=== PATIENT | male | born 1950 | race Caucasian/White ===

== ENCOUNTER 2018-06-06 10:01 | Inpatient (IN) | payer MEDICARE, OTHER ==
[2018-06-06 10:31] LABS: ABNORMAL IP MESSAGE 1; ADD MAN DIFF? NO; BASOPHILS % 0.3 % (0.0-2.0); EOSINOPHILS # 0.1 10^3/ul (0.0-0.5); EOSINOPHILS % 1.4 % (0.0-7.0); HEMATOCRIT 38.2 % (42.0-52.0); HEMOGLOBIN 10.9 g/dl (14.0-18.0); LYMPHOCYTES # 0.7 10^3/ul (0.8-2.9); LYMPHOCYTES % 11.9 % (15.0-51.0); MEAN CORPUSCULAR HEMOGLOBIN 21.3 pg (29.0-33.0); MEAN CORPUSCULAR HGB CONC 28.5 g/dl (32.0-37.0); MEAN CORPUSCULAR VOLUME 74.8 fl (82.0-101.0); MEAN PLATELET VOLUME 10.9 fl (7.4-10.4); MONOCYTE # 0.6 10^3/ul (0.3-0.9); MONOCYTES % 10.4 % (0.0-11.0); NEUTROPHIL # 4.5 10^3/ul (1.6-7.5); NEUTROPHILS % 75.7 % (39.0-77.0); PLATELET COUNT 227 10^3/UL (140-415); POSITIVE DIFF @See below; RED BLOOD COUNT 5.11 10^6/ul (4.70-6.10); RED CELL DISTRIBUTION WIDTH 17.6 % (11.5-14.5)
[2018-06-06 10:31] LABS: WHITE BLOOD COUNT 5.9 10^3/ul (4.8-10.8)
[2018-06-06] MEDS: NITROGLYCERIN (SL) 0.4 MG TAB SL (10:33)
[2018-06-06] MEDS: ONDANSETRON 4 MG INJ IV (10:33)
[2018-06-06] MEDS: NITROGLYCERIN 2% 1 GM OINT PKT TD (10:33)
[2018-06-06] MEDS: ASPIRIN 325 MG TAB PO (10:33)
[2018-06-06] MEDS: morphine 4 MG/ML VIAL IV (10:33)
[2018-06-06 10:54] LABS: ALANINE AMINOTRANSFERASE 10 IU/L (13-69); ALBUMIN 4.5 g/dl (3.3-4.9); ALBUMIN/GLOBULIN RATIO 1.28; ALKALINE PHOSPHATASE 98 IU/L (42-121); ANION GAP 13 (5-13); ASPARTATE AMINO TRANSFERASE 18 IU/L (15-46); BLOOD UREA NITROGEN 61 mg/dl (7-20); CALCIUM 8.8 mg/dl (8.4-10.2); CARBON DIOXIDE 16 mmol/L (21-31); CHLORIDE 114 mmol/L (97-110); CREATININE 3.61 mg/dl (0.61-1.24); Estimated GFR 17 mL/min (>60); GLUCOSE 155 mg/dl (70-220); SODIUM 143 mmol/L (135-144)
[2018-06-06 11:06] LABS: B-TYPE NATRIURETIC PEPTIDE 3630 PG/ML (0-125); TROPONIN-I < 0.012 ng/ml (0.000-0.120)
[2018-06-06] MEDS ORDERED: ACETAMINOPHEN 325 MG TAB PO (13:30)
[2018-06-06] MEDS ORDERED: ONDANSETRON 4 MG INJ IV (13:30)
[2018-06-06 17:47] LABS: CREATINE KINASE 196 IU/L (23-200)
[2018-06-06 18:00] LABS: CK INDEX 8.5
[2018-06-06 20:21] LABS: WHITE BLOOD COUNT 4.7 10^3/ul (4.8-10.8)
[2018-06-06 20:21] LABS: ABNORMAL IP MESSAGE 1; HEMATOCRIT 32.2 % (42.0-52.0); HEMOGLOBIN 9.5 g/dl (14.0-18.0); MEAN CORPUSCULAR HEMOGLOBIN 21.5 pg (29.0-33.0); MEAN CORPUSCULAR HGB CONC 29.5 g/dl (32.0-37.0); MEAN CORPUSCULAR VOLUME 72.9 fl (82.0-101.0); MEAN PLATELET VOLUME 11.2 fl (7.4-10.4); PLATELET COUNT 205 10^3/UL (140-415); POSITIVE DIFF @See below; RED BLOOD COUNT 4.42 10^6/ul (4.70-6.10); RED CELL DISTRIBUTION WIDTH 17.8 % (11.5-14.5)
[2018-06-06 20:29] LABS: ADD MAN DIFF? YES
[2018-06-06 20:41] LABS: INR 1.01; PROTIME 13.4 Sec (11.9-14.9)
[2018-06-06] MEDS: TAMSULOSIN (SR) 0.4 MG CAP PO (20:48)
[2018-06-06] MEDS: EZETIMIBE 10 MG TAB PO (20:49)
[2018-06-06] MEDS: SOD CHLORIDE 0.9% 1,000 ML IV (20:52)
[2018-06-06 21:04] LABS: PARTIAL THROMBOPLASTIN TIME 33.6 Sec (23.0-35.0)
[2018-06-06] MEDS: HEPARIN 1000 UNITS/ML 10 ML INJ IV (21:04)
[2018-06-06 21:19] LABS: ANISOCYTOSIS 2+ (0-0); BAND NEUTROPHILS % (M) 2 % (0-4); BASOPHILS % (M) 2 % (0-2); EOSINOPHILS % (M) 3 % (0-7); GIANT THROMBO% (M) 1 % (0-0); LYMPHOCYTES #M 0.7 10^3/ul (0.8-2.9); LYMPHOCYTES % (M) 15 % (15-51); METAMYELOCYTES #M 0.1 10^3/ul (0.0-0.0); METAMYELOCYTES %M 3 % (0-0); MICROCYTOSIS 1+ (0-0); MONOCYTE #M 0.5 10^3/ul (0.3-0.9); MONOCYTES % (M) 11 % (0-11); PLATELET ESTIMATE NORMAL; POIKILOCYTOSIS 3+ (0-0); POLYCHROMASIA 3+ (0-0); SEGMENTED NEUTROPHILS (M) % 64 % (39-77); SMUDGE%M 1 % (0-0)
[2018-06-06] MEDS: HEPARIN 25000 UNITS/250 ML 250 ML IV (21:43)
[2018-06-06] MEDS: CLONIDINE 0.2 MG/24 HR PATCH TRANSDERM (21:44)
[2018-06-07 00:52] LABS: CREATINE KINASE 203 IU/L (23-200)
[2018-06-07 01:06] LABS: CK INDEX 8.9
[2018-06-07 04:33] LABS: CHOL/HDL RATIO 3.6 RATIO; HDL CHOLESTEROL 32 mg/dl (30-78); LDL CHOLESTEROL,CALCULATED 75 mg/dl; TRIGLYCERIDES 53 mg/dl (0-149)
[2018-06-07 04:33] LABS: CHOLESTEROL 118 mg/dl (100-200)
[2018-06-07 04:35] LABS: PARTIAL THROMBOPLASTIN TIME 48.3 Sec (23.0-35.0)
[2018-06-07] MEDS: HEPARIN 25000 UNITS/250 ML 250 ML IV ×3 (04:42→21:14)
[2018-06-07] MEDS: FINASTERIDE 5 MG TAB PO (09:25)
[2018-06-07] MEDS: SOD CHLORIDE 0.9% 1,000 ML IV (09:28)
[2018-06-07] MEDS: ISOSORBIDE DINITRATE 10 MG TAB PO ×3 (09:30→21:00)
[2018-06-07 11:17] LABS: PARTIAL THROMBOPLASTIN TIME 46.5 Sec (23.0-35.0)
[2018-06-07] MEDS ORDERED: ASPIRIN 325 MG TAB (12:16)
[2018-06-07] MEDS ORDERED: CLOPIDOGREL 75 MG TAB (12:16)
[2018-06-07] MEDS ORDERED: ASPIRIN 81 MG TAB (12:26)
[2018-06-07] MEDS: CLOPIDOGREL 75 MG TAB PO (12:50)
[2018-06-07] MEDS: NIFEdipine (XL) 90 MG TAB PO (12:50)
[2018-06-07] MEDS: ASPIRIN 81 MG TAB PO (12:50)
[2018-06-07] MEDS: HEPARIN 1000 UNITS/ML 10 ML INJ IV (13:02)
[2018-06-07 20:06] LABS: CREATINE KINASE 98 IU/L (23-200)
[2018-06-07 20:11] LABS: PARTIAL THROMBOPLASTIN TIME 83.9 Sec (23.0-35.0)
[2018-06-07 20:17] LABS: CK INDEX 6.6
[2018-06-07 20:23] LABS: CK-MB 6.43 ng/ml (0.0-2.4)
[2018-06-07] MEDS: TAMSULOSIN (SR) 0.4 MG CAP PO (20:59)
[2018-06-07] MEDS: EZETIMIBE 10 MG TAB PO (20:59)
[2018-06-07] MEDS: ATORVASTATIN 80 MG TAB PO (21:01)
[2018-06-08] MEDS: SOD CHLORIDE 0.9% 1,000 ML IV
[2018-06-08 01:08] LABS: CREATINE KINASE 79 IU/L (23-200)
[2018-06-08 01:20] LABS: CK INDEX 6.1
[2018-06-08 01:31] LABS: CK-MB 4.85 ng/ml (0.0-2.4)
[2018-06-08 06:22] LABS: CREATINE KINASE 66 IU/L (23-200)
[2018-06-08 06:27] LABS: CK INDEX 5.5
[2018-06-08 06:28] LABS: CK-MB 3.66 ng/ml (0.0-2.4)
[2018-06-08] MEDS: HEPARIN 25000 UNITS/250 ML 250 ML IV (06:49)
[2018-06-08] MEDS: FINASTERIDE 5 MG TAB PO (08:27)
[2018-06-08] MEDS: CLOPIDOGREL 75 MG TAB PO (08:27)
[2018-06-08] MEDS: ASPIRIN 81 MG TAB PO (08:27)
[2018-06-08] MEDS: NIFEdipine (XL) 90 MG TAB PO (08:27)
[2018-06-08] MEDS: ISOSORBIDE DINITRATE 10 MG TAB PO ×3 (08:27→20:36)
[2018-06-08 10:14] LABS: PARTIAL THROMBOPLASTIN TIME 67.3 Sec (23.0-35.0)
[2018-06-08 10:40] LABS: ALANINE AMINOTRANSFERASE 52 IU/L (13-69); ALBUMIN 3.3 g/dl (3.3-4.9); ALBUMIN/GLOBULIN RATIO 1.13; ALKALINE PHOSPHATASE 85 IU/L (42-121); ANION GAP 13 (5-13); ASPARTATE AMINO TRANSFERASE 68 IU/L (15-46); BLOOD UREA NITROGEN 63 mg/dl (7-20); CALCIUM 7.8 mg/dl (8.4-10.2); CARBON DIOXIDE 12 mmol/L (21-31); CHLORIDE 117 mmol/L (97-110); CREATININE 3.54 mg/dl (0.61-1.24); Estimated GFR 17 mL/min (>60); GLUCOSE 94 mg/dl (70-220); MAGNESIUM 1.7 mg/dl (1.7-2.5); POTASSIUM 5.2 mmol/L (3.5-5.1); SODIUM 142 mmol/L (135-144); TOTAL PROTEIN 6.2 g/dl (6.1-8.1)
[2018-06-08 10:48] LABS: B-TYPE NATRIURETIC PEPTIDE 6480 PG/ML (0-125)
[2018-06-08] MEDS: FUROSEMIDE 40 MG INJ IV (12:04)
[2018-06-08 12:33] LABS: POTASSIUM 5.4 mmol/L (3.5-5.1)
[2018-06-08] MEDS: HEPARIN 5,000 UNIT/1 ML VIAL SC ×2 (13:14→21:20)
[2018-06-08] MEDS: SODIUM POLYSTYRENE 15 GM KIT (POWDER + SORBITOL) PO (13:20)
[2018-06-08] MEDS: ATORVASTATIN 80 MG TAB PO (20:35)
[2018-06-08] MEDS: EZETIMIBE 10 MG TAB PO (20:36)
[2018-06-08] MEDS: TAMSULOSIN (SR) 0.4 MG CAP PO (20:37)
[2018-06-09] MEDS: HEPARIN 5,000 UNIT/1 ML VIAL SC (05:16)
[2018-06-09 06:34] LABS: PARTIAL THROMBOPLASTIN TIME 36.8 Sec (23.0-35.0)
[2018-06-09 06:36] LABS: ANION GAP 16 (5-13); BLOOD UREA NITROGEN 57 mg/dl (7-20); CALCIUM 8.1 mg/dl (8.4-10.2); CARBON DIOXIDE 16 mmol/L (21-31); CHLORIDE 116 mmol/L (97-110); CREATININE 3.69 mg/dl (0.61-1.24); Estimated GFR 17 mL/min (>60); GLUCOSE 95 mg/dl (70-220); POTASSIUM 4.7 mmol/L (3.5-5.1); SODIUM 148 mmol/L (135-144)
[2018-06-09 06:46] LABS: CREATINE KINASE 48 IU/L (23-200)
[2018-06-09 06:47] LABS: B-TYPE NATRIURETIC PEPTIDE 6030 PG/ML (0-125)
[2018-06-09 06:49] LABS: CK INDEX 3.1; CK-MB 1.47 ng/ml (0.0-2.4)
[2018-06-09] MEDS: CLOPIDOGREL 75 MG TAB PO (08:47)
[2018-06-09] MEDS: FINASTERIDE 5 MG TAB PO (08:48)
[2018-06-09] MEDS: ASPIRIN 81 MG TAB PO (08:48)
[2018-06-09] MEDS: NIFEdipine (XL) 90 MG TAB PO (08:48)
[2018-06-09] MEDS: ISOSORBIDE DINITRATE 10 MG TAB PO (08:48)
[2018-06-09] MEDS ORDERED: CITRIC ACID/NA CITRATE 30 ML CUP PO ×2 (12:00→21:00)
== END 2018-06-09 13:38 | disposition home or self-care (01) | DRG 281 ==
LOC: E/R 10:01 → TEL 18:21
DX: I21.4 Non-ST elevation (NSTEMI) myocardial infarction (principal); N18.4 Chronic kidney disease, stage 4 (severe); N17.9 Acute kidney failure, unspecified; I13.0 Hypertensive heart and chronic kidney disease with heart failure and stage 1 through stage 4 chronic kidney disease, or unspecified chronic kidney disease; I50.40 Unspecified combined systolic (congestive) and diastolic (congestive) heart failure; E78.5 Hyperlipidemia, unspecified; N40.0 Benign prostatic hyperplasia without lower urinary tract symptoms; Z95.0 Presence of cardiac pacemaker; Z87.891 Personal history of nicotine dependence; E87.5 Hyperkalemia; D63.1 Anemia in chronic kidney disease
CPT/HCPCS: 36415; 71045; 80048; 80053; 80061; 82550; 82553; 83735; 83880; 84132; 84484; 85025; 85610; 85730; 93005; 93306; 96374; 96375; 99217; 99285-25; G0378